=== PATIENT | female | born 1950 | race Caucasian/White ===

== ENCOUNTER 2017-04-14 22:04 | Inpatient (IN) | payer OTHER ==
[~2017-04-14] VITALS: Ht 165.1 cm; Wt 97.6 kg
[~2017-04-14 22:04] MED LIST: ATARAX10 MG PO; BUPROPION XL300 MG PO; CALTRATE 600 +1 EAC1 PO; DAILY MULTIPLE1 EACH PO; KLONOPIN0.5 M1 PO; LEVAQUIN; LISINOPRIL; LISINOPRIL40 MG PO; LOVASTATIN; LOVASTATIN40 MG PO; MONTELUKAST SOD10 MG PO; OMEPRAZOLE PO; OMEPRAZOLE40 M1 PO; PRILOSEC40 MG PO; PROVENTIL,2.5 MG/0.5 IH; PROZAC20 MG PO; PROZAC40 MG PO; TESSALON PERLE; Tessalon Perle PO; VITAMIN D32000 UNI1 PO; WELLBUTRIN PO; WELLBUTRIN SR100 MG PO; ZESTRIL30 MG PO; predniSONE PO; prozac PO
[2017-04-15 10:44] VITALS: BP 139/82
[2017-04-15 17:29] VITALS: BP 129/84
[2017-04-15 20:00] VITALS: BP 105/59
[2017-04-15 22:00] VITALS: BP 110/54
[2017-04-16] VITALS: BP 103/56
[2017-04-16 04:12] VITALS: BP 104/55
[2017-04-16 05:31] LABS: HEMATOCRIT 31.8 % (36.0-46.0); MCV 97.5 FL (83-99)
[2017-04-16 05:58] LABS: ANION GAP 9 MEQ/L (2-14); CHLORIDE 99 MEQ/L (99-109); GFR ESTIMATE (CALCULATED) 59 mL/min/; GLUCOSE 180 mg/dL (70-99); POTASSIUM 4.6 MEQ/L (3.7-5.4); SAMPLE HEMOLYSIS CHECK 0; SAMPLE ICTERIC CHECK 0; SAMPLE LIPEMIA CHECK 0; SODIUM 133 MEQ/L (136-147); UREA NITROGEN (BUN) 25 mg/dL (9-23)
[2017-04-16 08:25] VITALS: BP 119/59
[2017-04-16 12:18] VITALS: BP 128/59
[2017-04-16 15:49] VITALS: BP 121/60
[2017-04-16 19:55] VITALS: BP 142/65
[2017-04-17] VITALS (7 sets, daily range): BP systolic 114–145; BP diastolic 56–67
[2017-04-17 05:39] LABS: HEMATOCRIT 30.3 % (36.0-46.0)
[2017-04-18 03:27] VITALS: BP 123/56
[2017-04-18 08:05] VITALS: BP 103/54
[2017-04-18] MEDS ORDERED: ENDOCET 5-3251 EACH PO (09:54)
[2017-04-18] MEDS ORDERED: XARELTO10 MG PO (09:54)
[2017-04-18] MEDS ORDERED: CELECOXIB200 MG PO (09:54)
[2017-04-18 12:05] VITALS: BP 116/58
== END 2017-04-18 13:22 | DRG 470 ==
LOC: ENRESERV 22:04 → 2SOUTH 04-15 09:49 → 3WEST 04-15 09:49 → 2SOUTH 04-15 10:06 → 3WEST 04-15 17:03
PROVIDERS: Orthopaedic Surgery Sports Medicine
PROC: 0SRD0J9 Replacement of Left Knee Joint with Synthetic Substitute, Cemented, Open Approach (ICD-10-PCS; principal; 2017-04-15)
DX: M17.12 Unilateral primary osteoarthritis, left knee (principal); Z68.35 Body mass index [BMI] 35.0-35.9, adult; I10 Essential (primary) hypertension; G47.30 Sleep apnea, unspecified; F32.9 Major depressive disorder, single episode, unspecified; Z90.49 Acquired absence of other specified parts of digestive tract; Z82.49 Family history of ischemic heart disease and other diseases of the circulatory system; Z82.62 Family history of osteoporosis; Z83.3 Family history of diabetes mellitus; Z80.9 Family history of malignant neoplasm, unspecified; Z82.61 Family history of arthritis
CPT/HCPCS: 71010; 73560; 80048; 85014; 85018; 86850; 86900; 86901; 94660; C1713; J0690; J1885; J2250; J2405; J2795; J7050; L1820

== ENCOUNTER 2017-05-31 11:13 | Emergency (ER) | payer OTHER ==
[~2017-05-31] VITALS: Ht 165.1 cm; Wt 89.5 kg
[~2017-05-31 11:13] MED LIST changes: +CELECOXIB200 MG PO; +ENDOCET 5-3251 EACH PO; +XARELTO10 MG PO
[2017-05-31 12:55] LABS: HEMATOCRIT 28.3 % (36.0-46.0); HEMOGLOBIN 10.3 G/DL (11.9-15.5); MCH 33.1 PG (29.0-34.0); MCHC 36.4 G/DL (30.0-36.0); PLATELET COUNT 391 K/uL (156-360); RBC DIS.WIDTH-CV 20.3 % (11.8-14.6); RBC DIS.WIDTH-SD 66.6 % (39-53); RED BLOOD COUNT 3.11 M/uL (3.80-5.20)
[2017-05-31 13:04] LABS: ALBUMIN 2.8 g/dL (3.2-4.8)
[2017-05-31 13:05] LABS: CHLORIDE 98 mEq/L (99-109); POTASSIUM 2.8 mEq/L (3.7-5.4); SODIUM 131 mEq/L (136-147)
[2017-05-31 13:07] LABS: GLUCOSE 101 mg/dL (70-99); TOTAL PROTEIN 5.8 g/dL (6.4-8.3)
[2017-05-31 13:09] LABS: TOTAL BILIRUBIN > 23.5 mg/dL (0.0-1.0)
[2017-05-31 13:10] LABS: ALKALINE PHOSPHATASE 1292 IU/L (3-129)
[2017-05-31 13:11] LABS: GFR ESTIMATE (CALCULATED) 59 mL/min/
[2017-05-31 13:12] LABS: AST (GOT) 366 IU/L (2-34); UREA NITROGEN (BUN) 22 mg/dL (9-23)
[2017-05-31 13:14] LABS: ALT (GPT) 397 IU/L (3-49)
[2017-06-01 02:33] VITALS: BP 110/53
== END 2017-06-01 02:34 | disposition short-term general hospital (02) ==
LOC: EME 11:13 → SDC 13:16 → EME 13:16 → SDC 14:29 → EME 15:33 → SDC 15:33 → EME 06-01 02:34
PROVIDERS: Emergency Medicine
DX: K86.89 Other specified diseases of pancreas (principal); E87.6 Hypokalemia; E86.0 Dehydration; K83.1 Obstruction of bile duct; E78.5 Hyperlipidemia, unspecified; Z87.442 Personal history of urinary calculi; F41.9 Anxiety disorder, unspecified; Z91.041 Radiographic dye allergy status
CPT/HCPCS: 74183; 74329; 80053; 81003; 82140; 83605; 83690; 85027; 87081; 88173; 88305; 93005; 99281; 99285; C1769; C2625; J0330; J1200; J1720; J2250; J2405; J2543; J3010